=== PATIENT | female | born 1950 | race Caucasian/White ===

== ENCOUNTER 2024-12-13 06:23 | Day surgery (SDC) | payer MEDICARE, SELFPAY ==
[2024-12-13 11:45] LABS: Glucose - Point of Care 116 mg/dl (70-99)
== END 2024-12-13 13:46 | disposition home or self-care (01) ==
LOC: GI 06:23
PROVIDERS: ATTENDING PHYSICIAN Internal Medicine
DX: K64.8 Other hemorrhoids (principal); R19.7 Diarrhea, unspecified; R63.4 Abnormal weight loss; Q43.8 Other specified congenital malformations of intestine; K29.70 Gastritis, unspecified, without bleeding; K44.9 Diaphragmatic hernia without obstruction or gangrene; R68.81 Early satiety; R11.0 Nausea
CPT/HCPCS: 45380; 43239; 82962; 88305; 88342

== ENCOUNTER → 2024-12-14 07:17 | Outpatient (REF) | payer MEDICARE, SELFPAY | LOC: RAD 07:17 | PROVIDERS: ATTENDING PHYSICIAN Internal Medicine; FAMILY PHYSICIAN Family Medicine | DX: R63.4 Abnormal weight loss (principal); R68.81 Early satiety; K52.9 Noninfective gastroenteritis and colitis, unspecified; K31.84 Gastroparesis | CPT/HCPCS: 74177; Q9967 ==